=== PATIENT | female | born 1975 | race Hispanic/Latino ===

== ENCOUNTER 2019-03-19 09:35 | Inpatient (IN) | payer SELFPAY ==
[~2019-03-19] VITALS: Ht 157.5 cm; Wt 75.7 kg
[2019-03-19 10:11] LABS: BASOPHILS % (AUTO) 0.4 % (0.0-5.0); EOSINOPHILS % (AUTO) 3.3 % (0.0-8.0); HEMATOCRIT 21.9 % (36-48); LYMPHOCYTES % (AUTO) 18.3 % (21.0-51.0); MEAN CORPUSCULAR HEMOGLOBIN 27.4 pg (27.0-33.0); MEAN CORPUSCULAR HGB CONC 34.2 g/dL (32.0-36.0); MEAN CORPUSCULAR VOLUME 79.9 fL (79-99); MONOCYTES % (AUTO) 15.2 % (3.0-13.0); NEUTROPHILS % (AUTO) 62.3 % (40.0-77.0); PLATELET COUNT (AUTO) 57 K/uL (130-400); RED BLOOD CELL COUNT(AUTO) 2.74 MIL/uL (4.00-5.50); RED CELL DISTRIBUTION WIDTH 21.7 % (11.0-15.5); WHITE BLOOD COUNT (AUTO) 7.9 K/uL (4.8-10.8)
[2019-03-19 10:23] LABS: CREATININE 3.6 mg/dL (0.5-1.5); POTASSIUM 3.4 mmol/L (3.5-5.1)
[2019-03-19 10:26] LABS: AMYLASE 39 U/L (25-115); LIPASE 95 U/L (114-286)
[2019-03-19 10:27] LABS: APPEARANCE,URINE Clear (CLEAR); BILIRUBIN,URINE Negative (NEGATIVE); COLOR,URINE Yellow (YELLOW); GLUCOSE, URINE (UA) Negative (NEGATIVE); KETONES,URINE Negative (NEGATIVE); LEUKOCYTE ESTERASE ,URINE Large (NEGATIVE); NITRATE,URINE Negative (NEGATIVE); OCCULT BLOOD,URINE Negative (NEGATIVE); PROTEIN,URINE Negative (NEGATIVE); UROBILINOGEN,URINE 0.2 mg/dL (0.2-1.0)
[2019-03-19 10:28] LABS: ALBUMIN 2.4 g/dL (3.5-5.0); BILIRUBIN,TOTAL 3.3 mg/dL (0.2-1.0); TOTAL PROTEIN, SERUM 5.6 g/dL (6.0-8.3)
[2019-03-19 10:36] LABS: INR 2.17 (0.85-1.15); PARTIAL THROMBOPLASTIN TIME 73.5 SEC (26.3-35.5); PROTHROMBIN TIME 22.1 SEC (9.6-11.6)
[2019-03-19 10:55] LABS: BACTERIA,URINE Few /HPF (None Seen); RBC,URINE 0-1 /HPF (0-1); SQUAMOUS EPITHELIAL CELL,UR 0-2 /HPF (0-2); YEAST,URINE BUDDING Few /HPF (None Seen)
[2019-03-19] MEDS ORDERED: LACTULOSE 20 GM/30 ML UDCUP PO PRN ×2 (12:30)
[2019-03-19] MEDS ORDERED: CEFTRIAXONE SODIUM 1 GM ONE (13:41)
[2019-03-19] MEDS ORDERED: OCTREOTIDE ACETATE 100 MCG/ML AMP ONE ×2 (13:43→23:17)
[2019-03-19] MEDS ORDERED: SODIUM CHLORIDE 0.9% 100 ML IV ONE ×3 (13:44→14:56)
[2019-03-19] MEDS ORDERED: OCTREOTIDE ACETATE 200 MCG/ML 5 ML VIAL ONE ×2 (14:56→23:27)
[2019-03-19] MEDS ORDERED: LACTULOSE 20 GM/30 ML UDCUP ONE (15:01)
[2019-03-19] MEDS ORDERED: DEXTROSE 5 % AND 0.9 % NACL 1,000 ML IV SCH (15:30)
[2019-03-19] MEDS ORDERED: SUCCINYLCHOLINE CHLORIDE 20 MG/ML 10 ML VIAL IVP ONE (15:35)
[2019-03-19] MEDS ORDERED: ROCURONIUM BROMIDE 10MG/1ML 5ML VL IV ONE (15:35)
[2019-03-19] MEDS ORDERED: DEXTROSE 5 % AND 0.9 % NACL 0 ML IV ONE (18:07)
[2019-03-19] MEDS: LACTULOSE 20 GM/30 ML UDCUP PO SCH (18:30)
[2019-03-19] MEDS: DEXTROSE 5%-WATER 1,000 ML IV SCH (18:30)
[2019-03-19] MEDS ORDERED: DEXTROSE 5%-WATER 1,000 ML IV ONE (18:35)
[2019-03-19] MEDS ORDERED: CEFTRIAXONE SODIUM 1 GM IVP SCH (19:30)
[2019-03-19 20:25] VITALS: BP 117/76
[2019-03-19 20:44] LABS: HEMATOCRIT 20.3 % (36-48)
[2019-03-19] MEDS ORDERED: FAMOTIDINE/PF 20 MG/2 ML VIAL IV SCH (21:00)
[2019-03-19] MEDS ORDERED: SODIUM CHLORIDE 0.9% 250 ML IV ONE (22:44)
[2019-03-19 23:14] VITALS: BP 101/60
[2019-03-19] MEDS ORDERED: SODIUM CHLORIDE 0.9% 200 ML IV ONE (23:27)
[2019-03-19] MEDS: PANTOPRAZOLE SODIUM 80 MG in SODIUM CHLORIDE 0.9% 100 ML IV SCH (23:35)
[2019-03-19] MEDS: OCTREOTIDE ACETATE 500 MCG in SODIUM CHLORIDE 0.9% 97.5 ML IV SCH (23:48)
[2019-03-20] VITALS (20 sets, daily range): BP systolic 102–114; BP diastolic 56–69
[2019-03-20] MEDS: LACTULOSE 20 GM/30 ML UDCUP PO SCH ×3 (00:06→18:14)
[2019-03-20] MEDS ORDERED: LACTATED RINGERS 1000ML 1,000 ML IV ONE (07:50)
[2019-03-20 09:04] LABS: BASOPHILS % (AUTO) 0.5 % (0.0-5.0); EOSINOPHILS % (AUTO) 4.5 % (0.0-8.0); HEMATOCRIT 27.8 % (36-48); LYMPHOCYTES % (AUTO) 22.4 % (21.0-51.0); MEAN CORPUSCULAR HGB CONC 32.7 g/dL (32.0-36.0); MEAN CORPUSCULAR VOLUME 82.5 fL (79-99); MONOCYTES % (AUTO) 17.9 % (3.0-13.0); NEUTROPHILS % (AUTO) 54.1 % (40.0-77.0); PLATELET COUNT (AUTO) 65 K/uL (130-400); RED BLOOD CELL COUNT(AUTO) 3.37 MIL/uL (4.00-5.50); WHITE BLOOD COUNT (AUTO) 7.7 K/uL (4.8-10.8)
[2019-03-20 09:16] LABS: ALBUMIN 2.3 g/dL (3.5-5.0); BILIRUBIN,TOTAL 3.3 mg/dL (0.2-1.0); CREATININE 3.3 mg/dL (0.5-1.5); POTASSIUM 3.4 mmol/L (3.5-5.1); TOTAL PROTEIN, SERUM 5.4 g/dL (6.0-8.3)
[2019-03-20] MEDS ORDERED: PROPOFOL 10 MG/ML 20ML VIAL IV ONE (09:34)
[2019-03-20] MEDS ORDERED: PHENYLEPHRINE HCL 10 MG/ML 1ML VIAL IV ONE (09:34)
[2019-03-20] MEDS ORDERED: LIDOCAINE HCL-MPF 2% 5ML VIAL ONE (09:35)
[2019-03-20] MEDS ORDERED: GLYCOPYRROLATE 0.2 MG/ML 5 ML VIAL ONE (09:35)
[2019-03-20] MEDS ORDERED: HYDR25TA PO (10:19)
[2019-03-20] MEDS ORDERED: MAGN400T53 PO (10:19)
[2019-03-20] MEDS ORDERED: FOLI0.8T PO (10:19)
[2019-03-20] MEDS ORDERED: FERR325T22 PO (10:19)
[2019-03-20] MEDS ORDERED: FURO40TA5 PO (10:19)
[2019-03-20] MEDS ORDERED: LACT10SO9 PO (10:19)
[2019-03-20] MEDS ORDERED: PANT40TA25 PO (10:19)
[2019-03-20] MEDS ORDERED: METO5TAB7 PO (10:19)
[2019-03-20] MEDS: CEFTRIAXONE SODIUM 1 GM IVP SCH ×2 (11:03→20:30)
[2019-03-20] MEDS: OCTREOTIDE ACETATE 500 MCG in SODIUM CHLORIDE 0.9% 97.5 ML IV SCH ×2 (11:33→22:28)
[2019-03-20] MEDS: PANTOPRAZOLE SODIUM 80 MG in SODIUM CHLORIDE 0.9% 100 ML IV SCH ×2 (11:33→22:28)
[2019-03-20] MEDS: DEXTROSE 5%-WATER 1,000 ML IV SCH (11:35)
[2019-03-21] VITALS (9 sets, daily range): BP systolic 98–120; BP diastolic 54–70
[2019-03-21] MEDS: LACTULOSE 20 GM/30 ML UDCUP PO SCH ×4 (03:23→18:21)
[2019-03-21 05:20] LABS: BASOPHILS % (AUTO) 0.3 % (0.0-5.0); EOSINOPHILS % (AUTO) 4.5 % (0.0-8.0); HEMATOCRIT 26.8 % (36-48); LYMPHOCYTES % (AUTO) 23.6 % (21.0-51.0); MEAN CORPUSCULAR HEMOGLOBIN 26.8 pg (27.0-33.0); MEAN CORPUSCULAR HGB CONC 33.2 g/dL (32.0-36.0); MEAN CORPUSCULAR VOLUME 80.7 fL (79-99); MONOCYTES % (AUTO) 21.3 % (3.0-13.0); NEUTROPHILS % (AUTO) 49.9 % (40.0-77.0); PLATELET COUNT (AUTO) 45 K/uL (130-400); RED BLOOD CELL COUNT(AUTO) 3.32 MIL/uL (4.00-5.50); RED CELL DISTRIBUTION WIDTH 19.1 % (11.0-15.5); WHITE BLOOD COUNT (AUTO) 7.6 K/uL (4.8-10.8)
[2019-03-21] MEDS: DEXTROSE 5%-WATER 1,000 ML IV SCH (05:40)
[2019-03-21 05:49] LABS: ALBUMIN 2.1 g/dL (3.5-5.0); BILIRUBIN,TOTAL 2.3 mg/dL (0.2-1.0); CREATININE 3.2 mg/dL (0.5-1.5); POTASSIUM 3.8 mmol/L (3.5-5.1); TOTAL PROTEIN, SERUM 5.4 g/dL (6.0-8.3)
[2019-03-21] MEDS: CEFTRIAXONE SODIUM 1 GM IVP SCH ×2 (08:11→20:31)
[2019-03-21] MEDS ORDERED: ALBUMIN (HUMAN) 25% 50 ML IV SCH (09:15)
[2019-03-21] MEDS: PANTOPRAZOLE SODIUM 80 MG in SODIUM CHLORIDE 0.9% 100 ML IV SCH ×2 (09:19→20:31)
[2019-03-21] MEDS: OCTREOTIDE ACETATE 500 MCG in SODIUM CHLORIDE 0.9% 97.5 ML IV SCH ×2 (09:56→20:34)
[2019-03-21] MEDS: MIDODRINE HCL 5 MG TABLET PO SCH ×3 (16:45→21:00)
[2019-03-21] MEDS: ALBUMIN (HUMAN) 25% 50 ML IV SCH ×2 (16:47→22:22)
[2019-03-21 16:58] LABS: CREATININE,URINE RANDOM 64 mg/dL (30-135); SODIUM,URINE RANDOM 66 mmol/l (40-220)
[2019-03-21 22:41] LABS: ABG BASE EXCESS -6.5 mmol/L (-2.0-3.0); ABG HCO3 16.6 mmol/L (21.0-28.0); ABG OXYGEN SATURATION 98.9 % (95.0-99.0); ABG PCO2 25 mmHg (32-45)
[2019-03-21 22:51] LABS: HEMATOCRIT 24.4 % (36-48); MEAN CORPUSCULAR HEMOGLOBIN 27.2 pg (27.0-33.0); PLATELET COUNT (AUTO) 47 K/uL (130-400); RED BLOOD CELL COUNT(AUTO) 3.05 MIL/uL (4.00-5.50); RED CELL DISTRIBUTION WIDTH 19.3 % (11.0-15.5); WHITE BLOOD COUNT (AUTO) 6.9 K/uL (4.8-10.8)
[2019-03-21 23:04] LABS: INR 2.28 (0.85-1.15); PROTHROMBIN TIME 23.2 SEC (9.6-11.6)
[2019-03-21 23:13] LABS: BAND NEUTROPHILS % (MANUAL) 2 % (0-2); LYMPHOCYTES % (MANUAL) 16 % (22-44); MONOCYTES % (MANUAL) 3 % (2-9); SEGMENTED NEUTROPHILS % 79 % (40-70)
[2019-03-21 23:14] LABS: MAN.DIFF COMMENT-IMPRESSION MANUAL DIFFERENTIAL; PLATELET MORPHOLOGY COMMENT MARKED DECREASE
[2019-03-22] VITALS (37 sets, daily range): BP systolic 84–110; BP diastolic 36–76
[2019-03-22] MEDS ORDERED: GLUCAGON 1MG KIT 1 MG ML IM PRN (00:30)
[2019-03-22] MEDS ORDERED: DEXTROSE 50%-WATER 50 ML DISP.SYRIN IV PRN (00:30)
[2019-03-22 00:35] LABS: ABG BASE EXCESS -6.6 mmol/L (-2.0-3.0); ABG HCO3 13.1 mmol/L (21.0-28.0); ABG OXYGEN SATURATION 98.8 % (95.0-99.0); ABG PCO2 17 mmHg (32-45)
[2019-03-22] MEDS: LACTULOSE 20 GM/30 ML UDCUP PO SCH ×2 (00:45→06:14)
[2019-03-22] MEDS: LACTULOSE 20 GM/30 ML UDCUP PR SCH ×4 (03:35→09:12)
[2019-03-22 04:22] LABS: BASOPHILS % (AUTO) 0.3 % (0.0-5.0); EOSINOPHILS % (AUTO) 0.3 % (0.0-8.0); HEMATOCRIT 23.8 % (36-48); MEAN CORPUSCULAR HEMOGLOBIN 26.7 pg (27.0-33.0); MEAN CORPUSCULAR HGB CONC 33.6 g/dL (32.0-36.0); MEAN CORPUSCULAR VOLUME 79.3 fL (79-99); MONOCYTES % (AUTO) 15.7 % (3.0-13.0); NEUTROPHILS % (AUTO) 67.9 % (40.0-77.0); PLATELET COUNT (AUTO) 47 K/uL (130-400); RED CELL DISTRIBUTION WIDTH 18.9 % (11.0-15.5); WHITE BLOOD COUNT (AUTO) 7.5 K/uL (4.8-10.8)
[2019-03-22 04:54] LABS: ALBUMIN 2.5 g/dL (3.5-5.0); BILIRUBIN,TOTAL 2.8 mg/dL (0.2-1.0); MAGNESIUM 1.7 mg/dL (1.80-2.40); PHOSPHORUS 5.9 mg/dL (2.5-4.9); POTASSIUM 3.8 mmol/L (3.5-5.1); THYROID STIMULATING HORMONE 3.54 uIU/mL (0.36-3.74); TOTAL PROTEIN, SERUM 5.5 g/dL (6.0-8.3); URIC ACID 13.1 mg/dL (2.6-7.2)
[2019-03-22] MEDS: ALBUMIN (HUMAN) 25% 50 ML IV SCH ×2 (06:13→14:56)
[2019-03-22] MEDS: DEXTROSE 5%-WATER 1,000 ML IV SCH (06:14)
[2019-03-22] MEDS: PANTOPRAZOLE SODIUM 80 MG in SODIUM CHLORIDE 0.9% 100 ML IV SCH ×2 (06:29→14:57)
[2019-03-22] MEDS: OCTREOTIDE ACETATE 500 MCG in SODIUM CHLORIDE 0.9% 97.5 ML IV SCH ×2 (06:29→14:57)
[2019-03-22] MEDS ORDERED: LORAZEPAM 2 MG/ML 1 ML VIAL ONE ×3 (06:51→07:00)
[2019-03-22] MEDS ORDERED: LORAZEPAM 1 MG TABLET JT PRN (08:00)
[2019-03-22] MEDS: LORAZEPAM 2 MG/ML 1 ML VIAL IVP PRN ×2 (08:20→09:12)
[2019-03-22] MEDS ORDERED: FOLIC ACID/VITAMIN B COMP W-C 1 MG CAP/TAB PO SCH (09:00)
[2019-03-22] MEDS: MIDODRINE HCL 5 MG TABLET PO SCH ×2 (09:00→14:00)
[2019-03-22] MEDS ORDERED: FOSPHENYTOIN SODIUM 1,000 MG in SODIUM CHLORIDE 0.9% 50 ML IJ SCH (09:00)
[2019-03-22] MEDS: CEFTRIAXONE SODIUM 1 GM IVP SCH (09:12)
[2019-03-22] MEDS ORDERED: PROPOFOL 1000 MG/100 ML 100 ML IV ONE (09:51)
[2019-03-22] MEDS ORDERED: PROPOFOL 1000 MG/100 ML IV PRN (10:00)
[2019-03-22] MEDS: PROPOFOL 1000 MG/100 ML 100 ML IV SCH ×2 (10:03→15:09)
[2019-03-22] MEDS: NOREPINEPHRINE 4MG/NS 250ML 250 ML IV SCH ×2 (10:29→15:30)
[2019-03-22] MEDS ORDERED: COMPOUND NARC IV MISC 1 EACH IVSOLN MISC PRN (12:15)
[2019-03-22] MEDS: SODIUM CHLORIDE 0.9% IVP PRN ×2 (12:21→14:55)
[2019-03-22] MEDS: LORAZEPAM IVP PRN ×2 (12:21→14:55)
[2019-03-22] MEDS ORDERED: LEVETIRACETAM 750 MG in SODIUM CHLORIDE 0.9% 100 ML IV SCH (13:30)
[2019-03-22] MEDS ORDERED: COMPOUND IV MISC 1 EACH IVSOLN MISC PRN (13:45)
[2019-03-22] MEDS ORDERED: SODIUM CHLORIDE 0.9% IVP PRN (15:45)
[2019-03-22] MEDS ORDERED: LORAZEPAM IVP PRN (15:45)
[2019-03-22] MEDS ORDERED: LACTULOSE 20 GM/30 ML UDCUP PR SCH (17:00)
== END 2019-03-22 18:03 | disposition short-term general hospital (02) | DRG 432 ==
LOC: EDH 09:35 → EDHIP 09:36 → 3AH 19:55 → 2BH 03-21 23:07
PROVIDERS: ADMIT Family Medicine; ATTEND Family Medicine
PROC: 30233N1 Transfusion of Nonautologous Red Blood Cells into Peripheral Vein, Percutaneous Approach (ICD-10-PCS; principal; 2019-03-19)
PROC: 06L38CZ Occlusion of Esophageal Vein with Extraluminal Device, Via Natural or Artificial Opening Endoscopic (ICD-10-PCS; 2019-03-20)
PROC: 5A1935Z Respiratory Ventilation, Less than 24 Consecutive Hours (ICD-10-PCS; 2019-03-21)
PROC: 0BH17EZ Insertion of Endotracheal Airway into Trachea, Via Natural or Artificial Opening (ICD-10-PCS; 2019-03-21)
PROC: 5A12012 Performance of Cardiac Output, Single, Manual (ICD-10-PCS; 2019-03-21)
DX: K70.30 Alcoholic cirrhosis of liver without ascites (principal); K76.7 Hepatorenal syndrome; E43 Unspecified severe protein-calorie malnutrition; G93.41 Metabolic encephalopathy; N18.6 End stage renal disease; I85.11 Secondary esophageal varices with bleeding; K92.0 Hematemesis; R18.8 Other ascites; N17.9 Acute kidney failure, unspecified; D68.9 Coagulation defect, unspecified; E87.1 Hypo-osmolality and hyponatremia; E87.4 Mixed disorder of acid-base balance; I12.0 Hypertensive chronic kidney disease with stage 5 chronic kidney disease or end stage renal disease; K76.6 Portal hypertension; N39.0 Urinary tract infection, site not specified; K72.90 Hepatic failure, unspecified without coma; D64.9 Anemia, unspecified; D69.6 Thrombocytopenia, unspecified; D50.0 Iron deficiency anemia secondary to blood loss (chronic); E83.39 Other disorders of phosphorus metabolism; E83.42 Hypomagnesemia; E86.0 Dehydration; G40.901 Epilepsy, unspecified, not intractable, with status epilepticus; K31.89 Other diseases of stomach and duodenum; Z68.30 Body mass index [BMI] 30.0-30.9, adult; Z87.891 Personal history of nicotine dependence; Z90.49 Acquired absence of other specified parts of digestive tract; Z90.710 Acquired absence of both cervix and uterus; Z91.14 Patient's other noncompliance with medication regimen; Z98.84 Bariatric surgery status
CPT/HCPCS: 31500; 36415; 36430; 36600; 43244; 70450; 71045; 76705; 80048; 80053; 81001; 82140; 82150; 82270; 82435; 82570; 82803; 82947; 82948; 83605; 83690; 83735; 83935; 84100; 84132; 84295; 84300; 84443; 84484; 84550; 85014; 85018; 85025; 85610; 85730; 86850; 86900; 86901; 86922; 87040; 87088; 92950; 93005; 94002; 94003; A4344; A6250; C9113; G0378; J0330; J0696; J1953; J2060; J2354; J2370; J2704; J3490; J7030; J7042; J7070; J7120; P9016; P9047; Q2009